=== PATIENT | female | born 1935 | race Caucasian/White ===

== ENCOUNTER 2017-09-08 12:35 | Emergency (ER) | payer BC, OTHER ==
[~2017-09-08] VITALS: Ht 167.6 cm; Wt 100.0 kg
[2017-09-08] MEDS ORDERED: SOD CHLORIDE 0.9% 1,000 ML IV STA (12:50)
[2017-09-08] MEDS ORDERED: ONDANSETRON 4 MG INJ IV STA (12:50)
[2017-09-08] MEDS ORDERED: morphine 4 MG/ML VIAL IV STA (12:50)
[2017-09-08 12:52] VITALS: Ht 167.6 cm; Wt 100.0 kg
--- NOTE | 2017-09-08 13:22 | ERD ---
ER Documentation Chief Complaint Chief Complaint bibr co r side body pain for past few days HPI 82-year-old woman brought in by EMS for right upper quadrant abdominal pain and cramping times the last 2-3 days. The pain has been nonradiating and nonexertional. Patient denies fevers or chills, no weight loss, no chest pain or shortness of breath, no headache or blurry vision. Patient denies similar previous episodes. Patient was transported here by EMS without further complications. ROS All systems reviewed and are negative except as per history of present illness. Medications Home Meds Active Scripts Ondansetron Hcl* (Zofran*) 4 Mg Tablet, 4 MG PO Q8H Y for NAUSEA AND/OR VOMITING , #15 TAB Prov:STEW QUIOÑNEZ MD 09/08/17 Naproxen* (Naprosyn*) 500 Mg Tablet, 500 MG PO BID Y for PAIN AND/OR INFLAMMATION, #30 TAB Prov:STEW QUIÑONEZ MD 09/08/17 Allergies Allergies: Coded Allergies: No Known Allergy (Unverified , 09/08/17) PMhx/Soc Hypertension FmHx Family History: No diabetes Physical Exam Vitals Vital Signs Date Time Temp Pulse Resp B/P Pulse Ox O2 Delivery O2 Flow Rate FiO2 09/08/17 15:03 73 15 152/77 98 Room Air 09/08/17 12:59 75 17 168/65 98 Room Air 09/08/17 12:52 98.6 87 18 207/68 98 Physical Exam GENERAL: Well-developed, well-nourished, well-hydrated, mild discomfort, afebrile, appears dehydrated HEENT: Dry mucous membranes, pink conjunctiva, no cervical spine tenderness or step-off deformities, no goiter, no jaundice or icterus, extraocular movements intact without pain. No submandibular induration, and no pharyngeal erythema NEURO: Alert and oriented 3, cranial nerves II through XII intact bilaterally, pupils equal round reactive to light, no focal deficits or facial asymmetry, sensation intact distally Strength 5/5 in upper and lower extremities bilaterally CARDIAC: Regular rate and rhythm, no murmurs rubs or gallops LUNGS: Clear bilaterally no wheezing crackles or stridor ABDOMEN: Soft nontender, no guarding, no rigidity, no rebound, no psoas sign no obturator sign. Normoactive bowel sounds SKIN: Warm and dry to touch, no abrasions, contusions, or hematomas, no lacerations, no ecchymosis, no target lesions, and without ulcers EXTREMITIES: No clubbing cyanosis or edema, calves are bilaterally symmetrical, no Homans sign, no popliteal cord sign. Distal pulses equal and bilateral PSYCH: Normal affect without agitation or irritability Result Diagram: 09/08/17 1330 09/08/17 1330 Results 24 hrs Laboratory Tests Test 09/08/17 13:30 White Blood Count 7.610^3/ul Red Blood Count 3.7310^6/ul Hemoglobin 10.8g/dl Hematocrit 32.9% Mean Corpuscular Volume 88.2fl Mean Corpuscular Hemoglobin 29.0pg Mean Corpuscular Hemoglobin Concent 32.8g/dl Red Cell Distribution Width 13.2% Platelet Count 87227^3/UL Mean Platelet Volume 9.7fl Neutrophils % 56.7% Lymphocytes % 33.3% Monocytes % 5.6% Eosinophils % 3.1% Basophils % 0.9% Nucleated Red Blood Cells % 0.0/100WBC Neutrophils # 4.310^3/ul Lymphocytes # 2.510^3/ul Monocytes # 0.410^3/ul Eosinophils # 0.210^3/ul Basophils # 0.110^3/ul Nucleated Red Blood Cells # 0.010^3/ul Sodium Level 142mmol/L Potassium Level 4.5mmol/L Chloride Level 106mmol/L Carbon Dioxide Level 21mmol/L Anion Gap 20 Blood Urea Nitrogen 20mg/dl Creatinine 1.09mg/dl Glucose Level 145mg/dl Calcium Level 9.0mg/dl Total Bilirubin 0.0mg/dl Direct Bilirubin 0.00mg/dl Indirect Bilirubin 0.0mg/dl Aspartate Amino Transf (AST/SGOT) 18IU/L Alanine Aminotransferase (ALT/SGPT) 32IU/L Alkaline Phosphatase 50IU/L Troponin I < 0.012ng/ml Total Protein 6.3g/dl Albumin 3.5g/dl Globulin 2.80g/dl Albumin/Globulin Ratio 1.25 Lipase 106U/L Current Medications Medications (Trade) Dose Ordered Sig/Elizabeth Route PRN Reason Start Time Stop Time Status Last Admin Dose Admin Sodium Chloride (NS) 1,000 ml @ 1,000 mls/hr Q1H STAT IV 09/08/17 12:50 09/08/17 13:49 DC 09/08/17 13:16 Morphine Sulfate (morphine) 4 mg ONCE STAT IV 09/08/17 12:50 09/08/17 12:53 DC 09/08/17 13:16 Ondansetron HCl (Zofran Inj) 4 mg ONCE STAT IV 09/08/17 12:50 09/08/17 12:53 DC 09/08/17 13:16 Procedures/MDM IV line was established patient was placed on cardiac cath rn rhythm strip revealed a sinus rhythm at about 80 bpm with upright P and T waves. Patient was afebrile EKG performed, read by me: 76 bpm, normal sinus rhythm, normal axis, no acute ST segment changes, narrow QRS complex, with good R-wave progression in precordial leads. I administered 1 L normal saline and asleep, morphine 4 mg IV, Zofran 4 mg IV, GI cocktail 30 cc p.o. with good effect. Pain resolved. CT scan of the abdomen and pelvis was performed, results:IMPRESSION: 1. Coronary artery calcification. 2. Permanent pacemaker. 3. Fatty metamorphosis of the liver. Hepatomegaly. 4. Gallstone in the gallbladder. No evidence of cholecystitis. 5. Atherosclerosis. 6. Prior hepatic flexure region: Surgery. 7. Degenerative changes of the spine. 8. Otherwise unremarkable CT scan of the abdomen and pelvis. CBC and electrolytes were normal, liver function tests were unremarkable, troponin was negative. Urine analysis was negative for infection. Differential diagnoses considered, included but not limited to acute coronary syndrome, pulmonary embolism, aortic dissection, abdominal aortic aneurysm, sepsis, stroke, meningitis, encephalitis, pneumonia, appendicitis, cholecystitis , bowel obstruction, pyelonephritis, nephrolithiasis, cystitis, as well as metabolic, hematologic, and electrolyte abnormalities. As well as abscess, cellulitis, fractures, and dislocations. Patient feels much better at this time, and vital signs are normal, symptoms have improved. I did give strict instructions to return to the ED if symptoms continue or worsen, patient will otherwise follow-up with primary care physician. Patient understood instructions and agreed to plan. Disclaimer: Inadvertent spelling and grammatical errors are likely due to EHR/ dictation software use and do not reflect on the overall quality of patient care. Also, please note that the electronic time recorded on this note does not necessarily reflect the actual time of the patient encounter. Departure Diagnosis: Primary Impression: Cholelithiasis Cholelithiasis location: gallbladder Cholecystitis presence: without cholecystitis Biliary obstruction: without biliary obstruction Qualified Code : K80.20 - Calculus of gallbladder without cholecystitis without obstruction Additional Impression: Dehydration Condition: Good STEW QUIÑONEZ MD Sep 08, 2017 13:22
--- NOTE | 2017-09-08 13:30 | RADRPT ---
PROCEDURE: CT Abdomen and Pelvis without contrast. CLINICAL INDICATION: Abdominal and pelvic pain. TECHNIQUE: CT scan of the abdomen and pelvis without contrast was performed. Coronal and sagittal reformatted images were obtained from the axial source images. Images were reviewed on a high-resolu tion PACS workstation. Total exam DLP is 1248.69 mGy-cm. CTDIvol is 21.51 mGy. One or more of the following dose reduction techniques were used: Automated exposure control, adjustment of the mA and/ or kV according to patient size, use of iterative reconstruction technique. DICOM images are availab le. COMPARISON: None. FINDINGS: The lung bases are normal. There is no pleural effusion or pericardial effusion. The heart size is normal. There is coronary artery calcification. There is a permanent pacemaker with leads in the rig ht atrium and right ventricle. The liver is enlarged and diffusely decreased in attenuation. There is no focal hepatic lesion. There is a gallstone in the gallbladder. There is no gallbladder wall thickening or fluid around the gallbladder. The spleen is normal in size. There is no focal splenic lesion. Both adrenals are normal with no enlargement or mass. The pancreas is unremarkable with no mass or evidence of pancreatitis. There is no renal mass or hydronephrosis. There is no renal calculus or ureteral calculus. The abdominal aorta is not dilated. There is calcification in the aorta consistent with atherosclero sis. There is no retroperitoneal lymphadenopathy or mass. There is no pelvic lymphadenopathy or mass. The bladder and distal ureters are normal. The periappendiceal region is unremarkable with no evidence of appendicitis. There has been prior surgery with surgical hannah noted in the hepatic flexure region of the colon. The bowel and mesentery are otherwise normal. There is no free fluid or free gas. There are degenerative changes of the spine. There is no fracture or lytic lesion IMPRESSION: 1. Coronary artery calcification. 2. Permanent pacemaker. 3. Fatty metamorphosis of the liver. Hepatomegaly. 4. Gallstone in the gallbladder. No evidence of cholecystitis. 5. Atherosclerosis. 6. Prior hepatic flexure region: Surgery. 7. Degenerative changes of the spine. 8. Otherwise unremarkable CT scan of the abdomen and pelvis. RPTAT: QQ .Jose Antonio Alvarado MD, Date Time Electronically viewed and signed by .Jose Antonio Alvarado MD, on 09/08/2017 13:30 .R/
[2017-09-08 13:43] LABS: BASOPHIL # 0.1 10^3/ul (0.0-0.1); BASOPHILS % 0.9 % (0.0-2.0); EOSINOPHILS # 0.2 10^3/ul (0.0-0.5); EOSINOPHILS % 3.1 % (0.0-7.0); HEMATOCRIT 32.9 % (37.0-47.0); HEMOGLOBIN 10.8 g/dl (12.0-16.0); LYMPHOCYTES # 2.5 10^3/ul (0.8-2.9); LYMPHOCYTES % 33.3 % (15.0-51.0); MEAN CORPUSCULAR HGB CONC 32.8 g/dl (32.0-37.0); MEAN CORPUSCULAR VOLUME 88.2 fl (82.0-101.0); MEAN PLATELET VOLUME 9.7 fl (7.4-10.4); MONOCYTE # 0.4 10^3/ul (0.3-0.9); MONOCYTES % 5.6 % (0.0-11.0); NEUTROPHIL # 4.3 10^3/ul (1.6-7.5); NEUTROPHILS % 56.7 % (39.0-77.0); PLATELET COUNT 265 10^3/UL (140-415); RED BLOOD COUNT 3.73 10^6/ul (4.20-5.40); RED CELL DISTRIBUTION WIDTH 13.2 % (11.5-14.5); WHITE BLOOD COUNT 7.6 10^3/ul (4.8-10.8)
[2017-09-08 14:02] LABS: ALANINE AMINOTRANSFERASE 32 IU/L (13-69); ALBUMIN 3.5 g/dl (3.3-4.9); ALBUMIN/GLOBULIN RATIO 1.25; ALKALINE PHOSPHATASE 50 IU/L (42-121); ANION GAP 20 (8-16); ASPARTATE AMINO TRANSFERASE 18 IU/L (15-46); BLOOD UREA NITROGEN 20 mg/dl (7-20); CARBON DIOXIDE 21 mmol/L (21-31); CHLORIDE 106 mmol/L (97-110); CREATININE 1.09 mg/dl (0.44-1.00); GLUCOSE 145 mg/dl (70-220); POTASSIUM 4.5 mmol/L (3.5-5.1); SODIUM 142 mmol/L (135-144); TOTAL PROTEIN 6.3 g/dl (6.1-8.1)
[2017-09-08 14:14] LABS: TROPONIN-I < 0.012 ng/ml (0.00-0.12)
[2017-09-08] MEDS ORDERED: NAPR-260 PO (14:52)
[2017-09-08] MEDS ORDERED: ONDA4TAB8 PO (14:52)
[2017-09-08 15:03] VITALS: BP 152/77; PULSE 73; RESP 15
== END 2017-09-08 15:07 | disposition home or self-care (01) ==
LOC: EDBD 12:35 → E/R 12:35
DX: K80.20 Calculus of gallbladder without cholecystitis without obstruction (principal); R40.2252 Coma scale, best verbal response, oriented, at arrival to emergency department; E86.0 Dehydration; R40.2142 Coma scale, eyes open, spontaneous, at arrival to emergency department; R40.2362 Coma scale, best motor response, obeys commands, at arrival to emergency department
CPT/HCPCS: 74176; 80053; 83690; 84484; 85025; J2270; J2405; J7030; Z7610; 93005; 96374; 96375